=== PATIENT | female | born 1975 | race Two or more races ===

== ENCOUNTER 2022-11-02 00:47 | Emergency (ER) | payer OTHER ==
[~2022-11-02] VITALS: Ht 157.5 cm; Wt 75.7 kg
[2022-11-02] MEDS ORDERED: KETO10TA2 PO (03:48)
== END 2022-11-02 04:30 ==
LOC: ER 00:47
DX: S80.02XA Contusion of left knee, initial encounter (principal); S80.01XA Contusion of right knee, initial encounter; W18.39XA Other fall on same level, initial encounter; Y93.89 Activity, other specified; Y92.59 Other trade areas as the place of occurrence of the external cause; Y99.9 Unspecified external cause status